=== PATIENT | female | born 1955 | race Two or more races ===

== ENCOUNTER → 2022-03-10 14:19 | Outpatient (REF) | payer MEDICAID, OTHER, SELFPAY ==
--- NOTE | 2022-03-10 | ECG_ITS ---
Test Reason : HTN Blood Pressure : / mmHG Vent. Rate : 065 BPM Atrial Rate : 065 BPM P-R Int : 148 ms QRS Dur : 086 ms QT Int : 400 ms P-R-T Axes : 027 -01 018 degrees QTc Int : 416 ms Normal sinus rhythm Cannot rule out Inferior infarct , age undetermined Abnormal ECG No previous ECGs available Referred By: Ashley Alcaraz Electronically Signed By:Clinton Paez
== END ==
LOC: HO.CARD 14:19
PROVIDERS: PCP Nurse Practitioner Primary Care; Visit Provider Nurse Practitioner Primary Care
DX: I10 Essential (primary) hypertension (principal)
CPT/HCPCS: 93005

== ENCOUNTER 2022-05-10 11:12 | Outpatient (REF) | payer MEDICAID, OTHER, SELFPAY ==
--- NOTE | ~2022-05-10 | US_ITS ---
EXAMINATION: US RETROPERITONEAL LIMITED (AORTA) CLINICAL INFORMATION: Family history of abdominal aortic aneurysm. Personal history of smoking. Abdominal aortic screening. COMPARISON: None TECHNIQUE: Osborne-scale, color Doppler and spectral Doppler evaluation of the abdominal aorta. FINDINGS: There are moderate atherosclerotic calcified roberts abdominal aorta. The measurements of the aorta in maximum AP and transverse dimensions respectively are as follows: Proximal: 2.6 x 3.0 cm. Mid: 2.3 x 2.0 cm. Distal: 2.0 x 2.0 cm. PSV: 87 cm/s. The measurements of the common iliac arteries in maximum AP and TRV dimensions are as follows: Right: AP: 1.4 cm. TRV: 1.4 cm. Left: AP: 1.3 cm. TRV: 1.7 cm. US/US aorta IMPRESSION: Atherosclerotic changes of abdominal aorta without aneurysmal dilatation.
== END 2022-05-10 11:13 | disposition home or self-care (01) ==
LOC: HO.HMGCX 11:12
PROVIDERS: Visit Provider Nurse Practitioner Primary Care
DX: Z13.6 Encounter for screening for cardiovascular disorders (principal); Z87.891 Personal history of nicotine dependence; Z84.89 Family history of other specified conditions
CPT/HCPCS: 76775

== ENCOUNTER 2023-06-08 07:56 | Outpatient (REF) | payer MEDICAID, OTHER, SELFPAY ==
--- NOTE | ~2023-06-08 | MM_ITS ---
EXAMINATION: MM SCREENING DIGITAL BREAST TOMOSYNTHESIS, BILATERAL CLINICAL INFORMATION: Screening. Asymptomatic. The lifetime risk of breast cancer based on the Tyrer-Cuzick Model is 4.4%. COMPARISON: Mammography: This is a baseline mammogram. TECHNIQUE: Digital breast tomosynthesis is performed in both the craniocaudal and mediolateral oblique views along with computer-aided detection (CAD). Synthesized 2D images are generated from the tomosynthesis. FINDINGS: There are scattered areas of fibroglandular density (ACR BI-RADS breast composition Category b). There are no significant masses, abnormal calcifications, or other abnormalities. MM/MM tomosynthesis screening BI IMPRESSION: No mammographic evidence of malignancy. ASSESSMENT: BI-RADS BI-RADS 1 - Negative RECOMMENDATION: Routine annual mammography screening. 1 year F/U This examination should not preclude the clinical evaluation of a suspicious palpable abnormality. This patient's information was entered into a reminder system with a target due date for their next mammogram.
--- NOTE | ~2023-06-08 | MM_ITS ---
EXAMINATION: BONE DENSITOMETRY CLINICAL INDICATION: Menopause. COMPARISON: This is the patient's baseline examination. TECHNIQUE: Using a [employer] DXA System (software version: 13.1) manufactured by [employer], dual-energy x-ray absorptiometry was performed of the lumbar spine and left hip. The images are of good technical quality. Summary results are attached. FINDINGS: LEFT FEMUR, NECK: BMD 0.956 g/cm2, Z-score 0.4, T-score -0.6, normal. LEFT FEMUR, TOTAL: BMD 1.126 g/cm2, Z-score 1.7, T-score 0.9, normal. AP SPINE L1-L4: BMD 1.416 g/cm2, Z-score 2.9, T-score 2.0, normal. IDENTIFIED RISK FACTORS: Menopause. HISTORY OF FRACTURE: None listed. MEDICATIONS: Vitamin D. MM/XR DEXA axial skeleton IMPRESSION: 1. DIAGNOSIS: Normal bone density based on the lowest T-score value of -0.6 in the femoral neck applying World Health Organization criteria. 2. 10-YEAR FRACTURE RISK PREDICTION, FRAX: According to the guidelines, FRAX calculation should only be performed on patients in the osteopenia bone density category. Therefore, FRAX was not performed on this patient. 3. Treatment Recommendations: NOF guidelines recommend consideration for treatment in postmenopausal women and men age 50 and older presenting with the following: -A hip or vertebral (clinical or morphometric) fracture. -T-score less than or equal to -2.5 at the femoral neck or spine after appropriate evaluation to exclude secondary causes. -Low bone mass at the hip or spine and a 10-year fracture probability by FRAX of greater than or equal to 3% for hip fracture or greater than or equal to 20% for major osteoporotic fracture based on the [place] adapted WHO algorithm. 4. Other Recommendations: All treatment decisions require clinical judgment and consideration of individual patient factors, including patient preferences, comorbidities, previous drug use, risk factors not captured in the FRAX model (e.g. frailty, falls, vitamin D deficiency, increased bone turnover, interval significant decline in bone density) and possible under or overestimation of fracture risk by FRAX. FUTURE SCAN RECOMMENDATION: People with diagnosed cases of osteoporosis or at high risk for fracture should have regular bone mineral density tests. For patients eligible for Medicare, routine testing is allowed once every 2 years. The testing frequency can be increased to one year for patients who have rapidly progressing disease, those who are receiving or discontinuing medical therapy to restore bone mass, or have additional risk factors.
== END 2023-06-08 07:57 | disposition home or self-care (01) ==
LOC: HO.MAMMO 07:56
PROVIDERS: PCP Nurse Practitioner Primary Care; Visit Provider Nurse Practitioner Primary Care
DX: Z12.31 Encounter for screening mammogram for malignant neoplasm of breast (principal); Z13.820 Encounter for screening for osteoporosis; Z78.0 Asymptomatic menopausal state
CPT/HCPCS: 77063; 77067; 77080

== ENCOUNTER → 2023-06-08 08:00 | Outpatient (BNV) | payer MEDICAID, SELFPAY | PROVIDERS: PCP Nurse Practitioner Primary Care; Visit Provider Radiology Diagnostic Radiology | DX: Z12.31 Encounter for screening mammogram for malignant neoplasm of breast (principal) | CPT/HCPCS: 77063; 77067 ==

== ENCOUNTER 2024-01-26 10:13 | Outpatient (REF) | payer OTHER, SELFPAY ==
[2024-01-26 11:42] LABS: Hematocrit 41.7 % (37.0-47.0); Hemoglobin 13.2 g/dl (12.0-16.0)
[2024-01-26 11:48] LABS: Estimated Average Glucose 120 mg/dL; Hemoglobin A1c % 5.8 % (<6.0)
[2024-01-26 11:58] LABS: Anion Gap 11 (12-20); Blood Urea Nitrogen 12 mg/dL (9-16); Calcium 9.2 mg/dL (8.4-10.2); Carbon Dioxide 29 mmol/L (22-29); Chloride 107 mmol/L (96-108); Cholesterol 128 mg/dL (<200); Estimated Glomerular Filt Rate > 60; Glucose Random 92 mg/dL (60-115); HDL Cholesterol 36 mg/dL (>40); LDL Cholesterol Calculated 66 mg/dL (<100); Potassium 3.8 mmol/L (3.3-5.1); Sodium 143 mmol/L (135-145); Triglycerides 134 mg/dL (<150)
[2024-01-26 12:00] LABS: Creatinine Urine 139.74 mg/dL; Microalbum/Creatinine Ratio Ur 10.7 ug/mg cr (<30)
== END 2024-01-26 10:14 | disposition home or self-care (01) ==
LOC: HO.LAB 10:13
PROVIDERS: PCP Nurse Practitioner Primary Care; Visit Provider Nurse Practitioner Primary Care
DX: Z00.00 Encounter for general adult medical examination without abnormal findings (principal); E78.5 Hyperlipidemia, unspecified; I70.0 Atherosclerosis of aorta; I10 Essential (primary) hypertension
CPT/HCPCS: 36415; 80048; 80061; 82043; 82570; 83036; 85014; 85018

== ENCOUNTER 2024-02-08 16:03 | Outpatient (REF) | payer OTHER, SELFPAY ==
--- NOTE | ~2024-02-08 | US_ITS ---
EXAMINATION: US THYROID CLINICAL INFORMATION: Anterior left neck swelling on exam. COMPARISON: None available. TECHNIQUE: Linear transducer grayscale and color Doppler examination with attention to the region of the thyroid. FINDINGS: SIZE: Measurements of the thyroid lobes and nodules are given in sagittal, anteroposterior and transverse dimensions respectively. Right Thyroid Lobe: 3.9 x 1.7 x 1.3 cm, volume 4.3 mL. Parenchyma: The gland echotexture is homogeneous. Thyroid vascularity is normal. Left Thyroid Lobe: 3.5 x 1.1 x 1.4 cm, volume 2.8 mL. Parenchyma: The gland echotexture is homogeneous. Thyroid vascularity is normal. Isthmus: 0.2 cm in maximum AP dimension. No focal thyroid nodule is seen. NODES: No lymphadenopathy is seen in the tissue surrounding the thyroid gland. US/US thyroid IMPRESSION: Unremarkable thyroid ultrasound. ACR TI-RADS RECOMMENDATION REFERENCE: Ultrasound-guided fine-needle aspiration, followup ultrasound, no further follow up. * TR1 (0 point) and TR2 (2 points): No FNA or follow up. * TR3 (3 points): FNA if more than or equal to 2.5 cm in maximum dimension, followup ultrasound in 1, 3 and 5 years if 1.5 to 2.4 cm in maximum dimension. * TR4 (4-6 points): FNA if more than or equal to 1.5 cm in maximum dimension, followup ultrasound in 1, 2, 3 and 5 years if 1 to 1.4 cm in maximum dimension. * TR5 (more than or equal to 7 points): FNA if more than or equal to 1 cm in maximum dimension, followup ultrasound every year for 5 years if 0.5 to 0.9 cm in maximum dimension. * TR3, TR4 or TR5 nodules that are below the size threshold for followup receive no follow up.
== END 2024-02-08 16:04 | disposition home or self-care (01) ==
LOC: HO.US 16:03
PROVIDERS: PCP Nurse Practitioner Primary Care; Visit Provider Nurse Practitioner Primary Care
DX: R22.1 Localized swelling, mass and lump, neck (principal)
CPT/HCPCS: 76536

== ENCOUNTER 2024-05-20 19:11 | Outpatient (REF) | payer OTHER, SELFPAY ==
[2024-05-23 15:28] LABS: HPV mRNA E6/E7 Not Detected (Not Detected)
== END 2024-05-20 19:12 | disposition home or self-care (01) ==
LOC: HO.LNP 19:11
PROVIDERS: Visit Provider Advanced Practice Midwife
DX: Z12.4 Encounter for screening for malignant neoplasm of cervix (principal); R87.810 Cervical high risk human papillomavirus (HPV) DNA test positive
CPT/HCPCS: 87624; 88175

== ENCOUNTER 2025-01-23 15:47 | Outpatient (AMB) | payer SELFPAY ==
--- NOTE | 2025-01-23 15:49 | HO.NEPHOV_ITS ---
Vital Signs 01/23/25 15:54 Height 5 ft 2 in Weight 199 lb 2 oz BMI 36.4 BP 144/82 H Blood Pressure Location Lt brachial Position Sitting Pulse 68 Pulse Source Pulse Oximeter Pulse Oximetry (%) 97 Oxygen Delivery Method Room Air Intake Visit Reasons: Self Referral: Hypertension-LVM Automobile Repair Service Estimator Required: Yes Automobile Repair Service Estimator Language: Mauritian Automobile Repair Service Estimator Services: Automobile Repair Service Estimator Offered & Declined ([facility] spanish interpreter services refused- Pt accompanied by daughter) Accompanied by: Daughter Allergies No Known Allergies Allergy (Verified 01/23/25 15:53) HPI Comments Details: Blossom is a delightful 69 year old Japanese who was diagnosed to have hypertension at 52 years of age, while she still was in [facility]. She was started on BP medication at that time . She continued that up to 2019 ( [place] at that time). Her BP was high at that time with headaches and was started on bisoprolol and ARB. She said that she was told she had CAD(in [facility]) and apparently she had further testing here with no definite evidence to say she had CAD. She has no vascular symptoms, CP, SOB,PND, orthopnea or edema. She has no H/O CHF, CVA, PAD, carotid stenosis, renal disease, thyroid dysfunction or proteinuria. She smokes daily and uses excessive sodium in the diet. Her parents and one daughter has H/O high BP. She has gained some weight since 2019; She takes ibuprofen prn. She also takes PRN BP medication from [facility] when her BP goes up. She denies headaches, weakness or visual disturbance. [facility] Medical History (Updated 01/23/25 @ 20:49 by Carlo Pepper MD) Hypertension Surgical History (Updated 01/23/25 @ 15:51 by Maribell Gage MA) H/O foot surgery H/O elbow surgery Family History (Updated 01/23/25 @ 15:51 by Maribell Gage MA) Father Heart disease Hypertension Father Heart disease Hypertension Social History (Updated 01/23/25 @ 15:50 by Maribell Gage MA) Alcohol intake: never Patient Tobacco Use Status: Current everyday Tobacco user Review of Systems Const All systems reviewed & are unremarkable except as noted in HPI and below Physical Exam Vital Signs: Last Vital Signs Pulse 68 01/23/25 15:54 BP 144/82 H 01/23/25 15:54 Pulse Ox 97 01/23/25 15:54 Oxygen Delivery Method Room Air 01/23/25 15:54 BMI result Body Mass Index 36.4 Const General: comfortable and no acute distress Orientation/consciousness: patient oriented x3 HEENT Head: Yes normocephalic Mouth: Normal oral and palatal mucosa present Eyes EOM: EOMs intact bilaterally Neck Neck: Yes supple Resp Auscultation: clear to auscultation bilaterally Cardio Jugular venous distension: no JVD Rate: regular rate GI Palpation (GI): Soft to palpation Auscultation: normal bowel sounds General: Yes no CVA tenderness Back/Spine/Pelvis Back: no CVA tenderness Skin General skin exam: no rashes or lesions noted Neuro General: patient oriented x3 and moves all extremities Extrem General: Yes no pedal edema Results Reviewed Nephrology Results: Hgb 13.2 g/dl (12.0-16.0) 01/26/24 Sodium 143 mmol/L (135-145) 01/26/24 Potassium 3.8 mmol/L (3.3-5.1) 01/26/24 Chloride 107 mmol/L (96-108) 01/26/24 Carbon Dioxide 29 mmol/L (22-29) 01/26/24 BUN 12 mg/dL (9-16) 01/26/24 Creatinine 0.70 mg/dL (0.5-1.4) 01/26/24 Calcium 9.2 mg/dL (8.4-10.2) 01/26/24 Urine Creatinine 139.74 mg/dL 01/26/24 Assessment & Plan Assessment & Plan (1) Hypertension: Code(s): I10 - Essential (primary) hypertension Category: Medical Qualifiers: Hypertension type: primary hypertension Qualified Code(s): I10 - Essential (primary) hypertension Plan She has no H/O hypokalemia, hypercalcemia, uncontrolled thyroid disorders or renal dysfunction. Her serum creatinine is normal. I increased her Valsartan/HCTZ to 80/12.5 mg bid after reducing bisoprolol to 5 mg daily. I plan to wean her off bisoprolol and optimize the dose of ARB/HCTZ. I asked her to lose weight and cut back Na in diet. She was asked to repeat serum K and renal function , given I increased her ARB & thiazides. She should quit smoking as well. All her & her daughters questions were answered. F/U given . Medications: New valsartan-hydrochlorothiazide 80-12.5 mg 1 tab PO BID 60 tabs 3RF 30 days Coding Level of Care Code New Pt Level 4 (75406) Diagnoses Primary hypertension I10 Hypertension type: primary hypertension
[2025-01-23 15:54] VITALS: BP 144/82; PULSE 68; O2SAT 97; BMI 36.4
--- OUTSIDE RECORDS SUMMARY | 2025-01-23 17:47 | XMS_ITS | Encounter Summary ---
Author Organization [employer] Address [address] [facility] [address] [place] [address] Care Team Providers Care Bottling Supervisor Name Role Phone Ashley Alcaraz Primary Care Provider [phone] Encounter Details Date Type Department Care Team ([facility] Contact Info) Description 08/23/2023 Orders Only [facility] MED & PEDS [address] [place] [address] Sloane Olson LPN Social History Tobacco Use Types Packs/Day Years Used Date Smoking Tobacco: Every Day Cigarettes 0.3 20 Passive Smoke Exposure: Never Smokeless Tobacco: Never Alcohol Use Standard Drinks/Week Comments Never 0 (1 standard drink = 0.6 oz pur e alcohol) Comments No Sex and Gender Information Value Date Recorded Sex Assigned at Female 09/25/2022 10:40 AM EDT Legal Sex Female 10:40 AM EDT Gender Identity Female 09/25/2022 10:40 AM EDT Sexual Orientation Straight 09/25/2022 10 :40 AM EDT documented as of this encounter Plan of Treatment Upcoming Encounters Date Type Department Care Team (Late Contact Info) Description 03/13/2025 2:30 PM EDT Office Visit [facility] MEDICINE [address] [place] [address] Ashley Alcaraz ANP [address] [place] [address] documented as of this encounter Visit Diagnoses Not on filedocumented in this encounter Care Teams Bottling Supervisor Relationship Specialty Start Date End Date Ashley Alcaraz ANP [address] [place] [address] PCP - General Family Medicine 02/28/22 documented as of this encounter
--- OUTSIDE RECORDS SUMMARY | 2025-01-23 17:47 | XMS_ITS | Encounter Summary ---
Author Organization [employer] [facility] Address [address] [place] [address] [address] [place] [address] Care Team Providers Care Chainstitch Zipper Setter Name Role Phone Ashley Alcaraz Primary Care Provider [phone] Encounter Details Date Type Department Care Team (Late st Contact Info) Description 12/25/2022 Orders Only [facility] MEDICINE [address] [place] [id number] Yoselin Gallardo LPN Social History Tobacco Use Types Packs/Day Years Used Date Smoking Tobacco: Never Assessed Comments Unknown Sex and Gender Information Value Date Recorded Sex Assigned at Female 09/25/2022 10:40 AM EDT Legal Sex Female 10:40 AM EDT Gender Identity Female 09/25/2022 10:40 AM EDT Sexual Orientation Straight 09/25/2022 10 :40 AM EDT documented as of this encounter Plan of Treatment Upcoming Encounters Date Type Department Care Team (Late st Contact Info) Description 03/13/2025 2:30 PM EDT Office Visit [facility] MEDICINE [address] [place] [phone] Ashley Alcaraz ANP [address] [place] [address] documented as of this encounter Visit Diagnoses Not on filedocumented in this encounter Care Teams Chainstitch Zipper Setter Relationship Specialty Start Date End Date Ashley Alcaraz ANP [address] [place] [id number] PCP - General Family Medicine 02/28/22 documented as of this encounter
--- OUTSIDE RECORDS SUMMARY | 2025-01-23 17:47 | XMS_ITS | Clinical Summary ---
Author Organization [facility] Address [address] [place] [address] Care Team Providers Care Stone Unloader Name Role Phone Ashley Alcaraz Primary Care Provider [phone] Allergies No known active allergies Medications valsartan-hydroc hlorothiazide (DIOVAN-HCT) 80-12.5 mg per tablet Take 1 tablet by mouth once a day. 02/28/2022 Active ibuprofen (MOTRIN) 800 mg tablet Take 800 mg by mouth every 8 hours. 02/04/2022 Active bisoprolol (ZEBETA) 10 mg tablet Take 10 mg by mouth once a day. 02/28/2022 Active cholecalciferol (VITAMIN D3) 1,000 unit tablet Take 1,000 Units by mouth once a day. 04/13/2022 Active Active Problems Problem Noted Date Diagnosed Date Other chest pain 06/26/2022 Social History Tobacco Use Types Packs/Day Years Used Date Smoking Tobacco: Light Smoker Smokeless Tobacco: Never Comments Unknown Sex and Gender Information Value Date Recorded Sex Assigned at Not on file Legal Sex Female 9:11 AM EDT Gender Identity Not on file Sexual Orientation Not on file Last Filed Vital Signs Vital Sign Reading Time Taken Comments Blood Pressure 130/75 06/26/2022 2:35 PM EDT Pulse 59 06/26/2022 2:35 PM EDT Temperature - - Respiratory Rate 16 06/26/2022 2:35 PM EDT Oxygen Saturation 96% 06/26/2022 2:35 PM EDT Inhaled Oxygen Concentration - - Weight 86.9 kg (191 lb 9.6 oz) 06/26/2022 2:35 P M EDT Height 160 cm (5' 3 ) 06/26/2022 2:35 PM EDT Body Mass Index 33.94 06/26/2022 2:35 PM EDT Plan of Treatment Health Maintenance Due Date Last Done Comments Cologuard 1957 Colon Cancer Screening 1957 Colonoscopy 1957 FOBT / Fit Test 1957 Hepatitis C Screening 1957 Sigmoidoscopy 1957 Pneumococcal Vaccine: 50+ Years (1 of 2 - PCV) 1976 DTaP,Tdap,and Td Vaccines (1 - Tdap) [address] Lung Cancer Screening (Baseline) 2007 Osteoporosis Screening 2007 Zoster Vaccines (1 of 2) 2007 COVID-19 Vaccine ( - 2023-2 5 season) 2024 03/27/2021, 03/05/2021 Influenza Vaccine (#1) 2024 Alcohol/Substance Use Screening 11/26/2024 Depression Screening and Follow-Up 11/26/2024 Health Care Proxy Review 11/26/2024 Social Drivers of Health Annual Screening 11/26/2024 RSV Vaccine (60+ years old a nd patients) (1 - 1-dose 75+ series) 2032 Hepatitis B Vaccines Aged Out No long er eligible based on patient's age to complete this topic [facility] Care Teams Stone Unloader Relationship Specialty Start Date End Date Ashley Alcaraz [address] [place] [id number] PCP - General 03/09/22
--- OUTSIDE RECORDS SUMMARY | 2025-01-23 17:47 | XMS_ITS | Encounter Summary ---
Author Organization [employer] [facility] Address [address] [place] [address] [address] [place] [address] Care Team Providers Care Flour Inspector Name Role Phone Ashley Alcaraz Primary Care Provider [phone] Reason for Visit * Reason Onset Date Comments Med Refill 10/26/2022 Encounter Details Date Type Department Care Team (Late st Contact Info) Description 10/26/2022 Telephone [facility] [address] [place], [place] [phone] Ashley Alcaraz ANP [address] [place], [place] [phone] Med Refill Social History Tobacco Use Types Packs/Day Years Used Date Smoking Tobacco: Never Assessed Comments Unknown Sex and Gender Information Value Date Recorded Sex Assigned at Female 09/25/2022 10:40 AM EDT Legal Sex Female 10:40 AM EDT Gender Identity Female 09/25/2022 10:40 AM EDT Sexual Orientation Straight 09/25/2022 10 :40 AM EDT documented as of this encounter Miscellaneous Notes * Telephone Encounter - No [place]graw - 10/26/2022 1:28 PM EST Tc from Marianela daughter of pt calling requesting a med refill on documented in this encounter Plan of Treatment Upcoming Encounters Date Type Department Care Team (Late st Contact Info) Description 03/13/2025 2:30 PM EDT Office Visit [facility] [address] [place], [place] [phone] Ashley Alcaraz ANP [address] [place] [address] documented as of this encounter Visit Diagnoses Not on filedocumented in this encounter Care Teams Flour Inspector Relationship Specialty Start Date End Date Ashley Alcaraz ANP [address] [place] [address] PCP - General Family Medicine 02/28/22 documented as of this encounter
--- OUTSIDE RECORDS SUMMARY | 2025-01-23 17:47 | XMS_ITS | Referral Summary ---
Author Organization [facility] Address [address] [place] [address] Care Team Providers Care Child Care Cook Name Role Phone Ashley Alcaraz Primary Care Provider [phone] Allergies No known active allergies Medications valsartan-hydroc [...] 06/26/2022 2:35 PM EDT Plan of Treatment Not on file Insurance [employer] HSNO/FREE CARE Care Teams Child Care Cook Relationship Specialty Start Date End Date Ashley Alcaraz [address] [place] [id number] PCP - General 03/09/22
--- OUTSIDE RECORDS SUMMARY | 2025-01-23 17:47 | XMS_ITS | Encounter Summary ---
Author Organization [facility] [employer] [facility] Address [address] [place] [address] [address] [place] [address] Care Team Providers Care Sales Superintendent Name Role Phone Ashley Alcaraz Primary Care Provider [phone] Encounter Details Date Type Department Care Team (Late st Contact Info) Description 01/02/2023 Orders Only [facility] CH[facility] MED & PEDS [address] [place] [address] Sloane Olson LPN Social History Tobacco Use [...] Description 03/13/2025 2:30 PM EDT Office Visit [facility] MEDICINE [address] [place] [address] Ashley Alcaraz ANP [address] [place] [address] documented as of this encounter Visit Diagnoses Not on filedocumented in this encounter Care Teams Sales Superintendent Relationship Specialty Start Date End Date Ashley Alcaraz ANP [address] [place] [address] PCP - General Family Medicine 02/28/22 documented as of this encounter
--- OUTSIDE RECORDS SUMMARY | 2025-01-23 17:47 | XMS_ITS | Clinical Summary ---
Author Organization [employer] Address [address] [facility] [address] [place] [address] Care Team Providers Care Floor Molder Name Role Phone Best Eric ROBERT Primary Care Provider [phone] Allergies No known active allergies Medications * This document contains information received from the source organization and may not represent a complete record from that organization. aspirin 81 MG EC tablet Take 1 tablet by mouth at bed time. Active omega-3 (Fish Oil) 1000 MG capsule Acti ve Plant Sterol Stanol-Pantethine (CholestOff Complete) 300-100 MG capsule Active ciclopirox (Penlac) 8 % solutionIndication s:Onychomycosis APPLY TO THE AFFECTED AREA(S) DIRECTED ONCE DAILY TO affected nails 6.6 mL 2 4 Active cholecalciferol (Vitamin D-3) 25 MCG tabletIndications: Vitamin D deficiency TAKE ONE TABLET EVERY MORNING 90 tablet 1 4 Active atorvastatin (Lipitor) 20 MG tabletIndications: Hyperlipidemia, unspecified hyperlipidemia type TAKE ONE TABLET BY MOUTH ONCE DAILY 90 tablet 2 4 Active bisoprolol (Zebeta) 10 MG tablet TAKE ONE TABLET DAILY 90 tablet 3 4 Active valsartan-hydroCHL OROthiazide (Diovan-HCT) 80-12.5 MG tablet TAKE ONE TABLET DAILY 90 tablet 3 4 Active clotrimazole (Lotrimin) 1 % creamIndications:T inea cruris APPLY TOPICALLY TWICE A DAY 45 g 4 Active Diclofenac Sodium 1 % gelIndications:Chetna n APPLY TWO GRAMS TO THE AFFECTED AREA(s) FOUR TIMES DAILY NEEDED FOR PAIN 100 g 1 4 Active Active Problems Problem Noted Date Diagnosed Date Dyslipidemia 01/29/2024 Low back pain radiating to both legs 01/29/2024 Essential hypertension 01/29/2024 Continuous dependence on cigarette smoking 01/28 Overview (01/29/2024): smoking much less, maybe 1 daily or 1 every few days Atherosclerosis of aorta 05/10/2022 Encounters Date Type Department Care Team Description 12/05/2024 Telephone [facility] [address] [place] [address] Anna Arboleda [place] January recall 11/14/2024 2:30 PM EST Office Visit [facility] [address] [place] [address] Isacc Rios DDS 11/11/2024 2:00 PM EST Office Visit [facility] [address] [place] [address] Isacc Rios DDS from Last 3 Months Immunizations Name Administration Dates Next Due Tdap 12/31/2023 Social History Tobacco Use Types Packs/Day Years Used Date Smoking Tobacco: Former Cigarettes 0.3 20 Passive Smoke Exposure: Never Smokeless Tobacco: Never Tobacco Cessation:Counseling Given: Not Answered Alcohol Use Standard Drinks/Week Comments Never 0 (1 standard drink = 0.6 oz pur e alcohol) Alcohol Answer Date Recorded Frequency of Alcohol Consumption Not on file 01/29/2024 Average Number of Drinks Not on file 024 Frequency of Binge Drinking Not on file 03/2024 Score 0 01/29/2024 Depression Answer Date Recorded Patient Health Questionnaire-9 Score 0 12/31/2023 Patient Health Questionnaire-9 Score 0 12/31/2023 Last PHQ-9: Questionnaire Data Not on file 0 12/31/2023 Housing Stability Answer Date Recorded What is your housing situation today? I have andrew alvarado 09/24/[address] you li ve. Do you have problems with any of the following? None of the above 09/24/2023 Food Insecurity Answer Date Recorded Within the past 12 months, y ou worried that your food would run out before you got money to buy more: Never True 09/24/2023 Within the past 12 months,th e food you bought just didn't last and you didn't have enough money to get more: Never True Transportation Answer Date Recorded In the past 12 months, has l ack of transportation kept you from medical appts, meetings, work or from getting things needed for daily living? No 09/24/2023 Utilities Answer Date Recorded In the past 12 months, has t he electric, gas, oil or water company threatened to shut off services in your home? No 09/24/2023 Depression Answer Date Recorded Patient Health Questionnaire-2 Score 0 12/31/2023 Comments No Sex and Gender Information Value Date Recorded Sex Assigned at Female 09/25/2022 10:40 AM EDT Legal Sex Female 10:40 AM EDT Gender Identity Female 09/25/2022 10:40 AM EDT Sexual Orientation Straight 09/25/2022 10 :40 AM EDT Last Filed Vital Signs Vital Sign Reading Time Taken Comments Blood Pressure 137/85 05/20/2024 3:34 PM EDT Pulse 79 05/20/2024 3:34 PM EDT Temperature 36.9 ??C (98.5 ??F) 05/20/2024 3:34 PM ED T Respiratory Rate 18 05/20/2024 3:34 PM EDT Oxygen Saturation 98% 05/20/2024 3:34 PM EDT Inhaled Oxygen Concentration - - Weight 88.4 kg (194 lb 12.8 oz) 05/20/2024 3:34 PM EDT Height 157.5 cm (5' 2 ) 05/20/2024 3:34 PM EDT Body Mass Index 35.63 05/20/2024 3:34 PM EDT Plan of Treatment Upcoming Encounters Date Type Department Care Team (Late st Contact Info) Description 03/13/2025 2:30 PM EDT Office Visit [facility] [address] [place], [place] [phone] Eric Best ANP [address] [place] [address] Health Maintenance Due Date Last Done Comments CT Colonography 1955 Colonoscopy 1955 Dental X-Ray: Bitewings 1955 Dental X-Ray: Full Mouth 1957 FIT 1957 FOBT 1955 Sigmoidoscopy 1955 Hepatitis A Vaccines (1 of 2 - Risk 2-dose series) 1976 Pneumococcal Vaccine: 50+ Years (1 of 1 - PCV) 2007 Zoster Vaccines (1 of 2) 2007 Dental Oral Exam 10/15/2023 04/13/2023 Dental Prophylaxis 10/15/2023 04/13/2023 SDOH Screening 05/03/2024 05/03/2023 Mammogram 06/08/2024 06/08/2023, 06/08/2023 COVID-19 Vaccine (3 - 2023-2 5 season) 2024 03/27/2021, 03/05/2021 Influenza Vaccine (#1) 2024 Depression Screening 12/31/2024 12/31/2023, 12/31/2023 Diabetes: Hemoglobin A1C 01/25/2025 024, 02/28/2022 Alcohol/Substance Use Screening 01/28/2025 01/29/2024 HPV/Cotest 05/20/2025 05/20/2024, 04/24/2023, 04/24/2023 Pap Smear 05/20/2025 05/20/2024, 04/24/2023 Tobacco Screening 11/14/2025 11/14/2024 Colorectal Cancer Screening 06/19/2027 FIT DNA/Cologuard 06/19/2027 06/19/2024 Lipid Panel 01/25/2029 01/26/2024, 02/28/2022 RSV Patients and Patients Aged 60 years or older (1 - 1-dose 75+ series) 2032 DTaP/Tdap/Td Vaccines (2 - T d or Tdap) 12/31/2033 12/31/2023 Hepatitis C Screening Completed 02/28/2022 HIB Vaccines Aged Out No longer eligi ble based on patient's age to complete this topic HPV Vaccines Aged Out No longer eligi ble based on patient's age to complete this topic Hepatitis B Vaccines Aged Out No long er eligible based on patient's age to complete this topic IPV Vaccines Aged Out No longer eligi ble based on patient's age to complete this topic Meningococcal Vaccine Aged Out No sonya narendra eligible based on patient's age to complete this topic RSV under 20 months Aged Out No longe r eligible based on patient's age to complete this topic Rotavirus Vaccines Aged Out No longer eligible based on patient's age to complete this topic Procedures Procedure Name Priority Date/Time Associated Diagnosis Comments REPAIR RESIN PARTIAL DENTURE BASE, JONAS Routine 11/14/2024 2:30 PM EST CASE PRESENTATION, DETAILED AND EXTENSIVE TREATMENT PLANNING Routine 11/11/2024 2:00 PM EST LIMITED ORAL EVALUATION - PROBLEM FOCUSED Routine 11/11/2024 2:00 PM EST LAB COLOGUARD?? COLON CANCER SCREEN Routine 06/19/2024 5:20 PM EDT Screening for malignant neoplasm of colon THINPREP IMAGING PAP AND HPV MRNA E6/E7 WITH REFLEX TO HPV 16,18/45 Routine 05/20/2024 3:28 PM EDT HEMOGLOBIN A1C Routine 01/26/2024 10:38 AM EST Healthcare maintenance Dyslipidemia LIPID PANEL, STANDARD Routine 01/26/2024 10:38 AM EST Dyslipidemia BI MAMMOGRAM SCREENING TOMOSYNTHESIS BILATERAL Routine 06/08/2023 8:11 AM EDT PERIODIC ORAL EVALUATION - ESTABLISHED PATIENT Routine 04/13/2023 9:30 AM EDT PROPHYLAXIS - ADULT Routine 04/13/2023 8 :00 AM EDT ZZZ HISTORICAL HEPATITIS C AB W/REFL TO HCV RNA, QN, PCR Routine 02/28/2022 10:58 AM EDT from Last 3 Months or Most Recently Relevant to Health Maintenance Results * Cologuard?? colon cancer screening (06/19/2024 5:20 PM EDT) Cologuard Result Negative Negative 06/25/20 1:38 PM EDT [employer] (CLIA #:[id number]) Comment: NEGATIVE TEST RESULT. A negative Cologuard result indicates a low likelihood that a colorectal cancer (CRC) or advanced adenoma (adenomatous polyps with more advanced pre-malignant features) ??is present. The chance that a person with a negative Cologuard test has a colorectal cancer is less than 1 in 1500 (negative predictive value >99.9%) or has an ??advanced adenoma is less than ??5.3% (negative predictive value 94.7%). These data are based on a prospective cross-sectional study of 10,000 individuals at average risk for colorectal cancer who were screened with both Cologuard and colonoscopy. (Zackary Peralta al, N Engl J Med 2014;370(14):1286- 1297) The normal value (reference range) for this assay is negative. COLOGUARD RE-SCREENING RECOMMENDATION: Periodic colorectal cancer screening is an important part of preventive healthcare for asymptomatic individuals at average risk for colorectal cancer. ??Following a negative Cologuard result, the [place] [employer] Society and U.S. Multi-Society Task Force screening guidelines recommend a Cologuard re-screening interval of 3 years. References: [place] [employer] Guideline for Colorectal Cancer Screening: https://www.cancer.org/cancer/rrpmu-ycpvut-yhvbka/lhsswfqrl-qrmthsxsb-iyradxo/ac s-rec ommendations.html.; Rodrick DK, Ondina CR, Yasmine SantillanK, Colorectal Cancer Screening: Recommendations for Physicians and Patients from the U.S. Multi-Society Task Force on Colorectal Cancer Screening , Am J Gastroenterology 2017; 112:5807-6649. TEST DESCRIPTION: Composite algorithmic analysis of stool DNA-biomarkers with hemoglobin immunoassay. ?? Quantitative values of individual biomarkers are not reportable and are not associated with individual biomarker result reference ranges. Cologuard is intended for colorectal cancer screening of adults of either sex, 45 years or older, who are at average-risk for colorectal cancer (CRC). Cologuard has been approved for use by the U.S. FDA. The performance of Cologuard was established in a cross sectional study of average-risk adults aged 50-84. Cologuard performance in patients ages 45 to 49 years was estimated by sub-group analysis of near-age groups. Colonoscopies performed for a positive result may find as the most clinically significant lesion: colorectal cancer [4.0%], advanced adenoma (including sessile serrated polyps greater than or equal to 1cm diameter) [20%] or non- advanced adenoma [31%]; or no colorectal neoplasia [45%]. These estimates are derived from a prospective cross-sectional screening study of 10,000 individuals at average risk for colorectal cancer who were screened with both Cologuard and colonoscopy. (Zackary Peralta al, N Engl J Med 2014;370(14):1196-9959.) Cologuard may produce a false negative or false positive result (no colorectal cancer or precancerous polyp present at colonoscopy follow up). A negative Cologuard test result does not guarantee the absence of CRC or advanced adenoma (pre-cancer). The current Cologuard screening interval is every 3 years. ([place] [employer] and U.S. Multi-Society Task Force). Cologuard performance data in a 10,000 patient pivotal study using colonoscopy as the reference method can be accessed at the following location: www.OptionEase.LOCK8/results. Additional description of the Cologuard test process, warnings and precautions can be found at www.Cynvecrd.LOCK8. Stool specimen (specimen) 06/19/2024 5:20 PM EDT 06/21/2024 7:36 AM EDT [facility] MOLECULAR DIAGNOSTICS ORDERA BLES Final Result [employer] (CLIA #:[id number]) [address] [place] [address], * ThinPrep Imaging Pap and HPV mRNA E6/E7 with Reflex to HPV 16,18/45 (05/20/2024 3:28 PM EDT) HPV 16 RNA ORP [facility] HPV 18/45 RNA [facility] HPV nRNA E6/E7 Not Detected Not Detected [facility] Comment:Methodology: Transcr iption-Mediated AmplificationThis assay detects E6/E7 viral messenger RNA (mRNA) from 14high-risk HPV types (16,18,31,33,35,39,45,51,52,56,58,59,66,68).Cervical sources are required for HPV testing.If a vaginal source from a patient who has had atotal hysterectomy with removal of cervix wassubmitted, please contact the testing laboratoryfor alternative testing options.For additional information, please refer tohttp://education.WebRadar/faq/JIC633u9(This link if provided for information/educational purposes only.)THIS TEST WAS PERFORMED AT:[facility] [address] [phone] BRIZUELA MD SOURCE: SEE NOTE [facility] Comment:Cervix Report Status: [facility] Clinical Information: SEE NOTE [facility] Comment:ROUTINE LMP: SEE NOTE [facility] Comment:NONE GIVEN Prev. PAP: SEE NOTE [facility] Comment:2019 Prev. BX: SEE NOTE [facility] Comment:NONE GIVEN Statement Of Adequacy: SEE NOTE [facility] Comment:Satisfactory for jd luation.Endocervical/transformation zone component absent. General Categorization: [facility] Interpretation/Result: SEE NOTE [facility] Comment:Cytology Results: Ne gative for intraepitheliallesion or malignancy. Cytology Comment SEE NOTE [facility] Comment:This Pap test has be en evaluated with computerassisted technology. Odd Shoe Examiner: SEE NOTE [facility] Comment:MRC, CT(ASCP) CT scr eening location: [address] [address] Review Odd Shoe Examiner: [facility] Pathologist [facility] PAP Infection [facility] See Note SEE [facility] Comment:EXPLANATORY NOTE:The Pap is a screening test for cervical cancer. It isnot a diagnostic test and is subject to false negativeand false positive results. It is most reliable when asatisfactory sample, regularly obtained, is submittedwith relevant clinical findings and history, and whenthe Pap result is evaluated along with historic andcurrent clinical information. 05/20/2024 3:28 PM EDT 05/21/2024 11:49 AM EDT Narrative [facility] - 05/27/2024 3:22 PM EDT SEE SCANNED RESULTS IN [id number] Qian JAMES LAB PATHOLOGY ORDERABLES Final Result Performing Organization Address [facility]/ZIP Co de Phone Number [facility] [address] [place] [address] [phone] * Hemoglobin A1c (01/26/2024 10:38 AM EST) Hemoglobin A1c 5.8 <6.0 % [facility] Comment:Hemoglobin A1C Refer ence Range Adults: 4.8 - 6.0 % Non diabetic: < 6.0 % Goal: < 7.0 %Additional Action Suggested: > 8.0 %Note: Hemoglobin A1c results are invalid for patients with abnormal amounts of HbF. Blood transfusions may impact the HbA1c concentration in the patient sample. Estimated Average Glucose 120 mg/dL [facility] Comment:eAG = Estimated ave rage glucose which is %A1C expressed asaverage glucose, using the formula of the J4Y-AylgiheKcigcir Glucose study (ADAG), Diabetes Care, Vol.31,#8,Jun. 2007 Blood Venous blood specimen / Unknown 01/26/2024 10:38 AM EST 01/26/2024 10:39 AM EST us Eric ROBERT LAB BLOOD ORDERABLES Final Resul t Performing Organization Address City/[facility]/ZIP Co de Phone Number [facility] [address] [place] [phone] * (ABNORMAL) Lipid Panel, Standard (01/26/2024 10:38 AM EST) Triglycerides 134 <150 mg/dL [facility] Comment:Desirable Triglyceri de: less than 150 mg/dLBorderline High Triglyceride 150-199 mg/dLHigh Triglyceride: 200-499 mg/dLVery High Triglyceride: greater than or equal to 5OO mg/dL Cholesterol 128 <200 mg/dL [facility] Comment:Desirable Cholestero l: less than 200 mg/dLBorderline High Cholesterol: 200-239 mg/dLHigh Cholesterol: greater than 239 mg/dL LDL Cholesterol Calculated 66 <100 mg/dL [facility] Comment:Desirable LDL: less than 100 mg/dLNear Optimal/Above Optimal LDL: 110- 129 mg/dLBorderline High LDL: 130-159 mg/dLHigh LDL: 160-189 mg/dLVery High LDL: greater than or equal to 190 mg/dL HDL Cholesterol 36(L) >40 mg/dL [facility] Comment:Desirable HDL: great er than 40 mg/dL Note: This HDL assay may give artificially low results in patients with liver disease. Blood Venous blood specimen / Unknown 01/26/2024 10:38 AM EST 01/26/2024 10:39 AM EST us Eric Best [facility] LAB BLOOD ORDERABLES Final Resul t [facility] [address] [place] [address] [phone] * BI Mammogram Screening Tomosynthesis Bilateral (06/08/2023 8:11 AM EDT) Anatomical Region Laterality Modality Breast Bilateral Mammography 06/08/2023 8:11 AM EDT Narrative 07/03/2023 2:17 PM EDT ? [facility] [place] ? [address] ?[place] [address] ? Mammography Report ? Signed ? Patient: Zimatkina,Taisa ?MR#: [id number] ?? [id number] ? : 1955 ?Acct:[id number] ? Age/Sex: 67 / F ?ADM Date: 07/14/23 ? Loc: HO.MAMMO ? Attending Dr: Eric Best SHEET METAL FORMER ? Ordering Physician: NASIR,ERIC SHEET [employer]AL FORMER ?Results: ? Date of Service: 06/08/23 ?Follow Up: ? Procedure(s): MM tomosynthesis screening BI ?? Accession Number(s): [id number] ? cc: NASIR,ERIC YANCEY ? EXAMINATION: ?? MM SCREENING DIGITAL BREAST TOMOSYNTHESIS, BILATERAL ? CLINICAL INFORMATION: ? Screening. Asymptomatic. ? The lifetime risk of breast cancer based on the Tyrer-Cuzick Model is ?? 4.4%. ? COMPARISON: ?? Mammography: This is a baseline mammogram. ? TECHNIQUE: ?? Digital breast tomosynthesis is performed in both the craniocaudal and ?? mediolateral oblique views along with computer-aided detection (CAD). ?? Synthesized 2D images are generated from the tomosynthesis. ? FINDINGS: ?? There are scattered areas of fibroglandular density (ACR BI-RADS breast ?? composition Category b). ? There are no significant masses, abnormal calcifications, or other ?? abnormalities. ? MM/MM tomosynthesis screening BI ?? IMPRESSION: ?? No mammographic evidence of malignancy. ? ASSESSMENT: ? BI-RADS BI-RADS 1 - Negative ? RECOMMENDATION: ?? Routine annual mammography screening. ? 1 year F/U ? This examination should not preclude the clinical evaluation of a ?? suspicious palpable abnormality. ? This patient's information was entered into a reminder system with a ?? target due date for their next mammogram. ? Dictated By: ?Aissatou Ramos MD ? Signed By: ?<Electronically signed by Aissatou Ramos MD in OV> ? 07/03/23 1415 ? DD/ ? TD/TT: ? Nip Wrapper: ? Procedure Note Leah Montero - 07/03/2023 [facility] [address] [place], [place] [address] Mammography Report Signed Patient: Ingrid Whatley#: [id number] : 7Acct:[id number] Age/Sex: 67 / FADM Date: 06/08/23 Loc: HOJuditMAMMO Attending Dr: Eric Best SHEET [employer] FORMER Ordering Physician: ERIC BEST NPResults: Date of Service: 06/08/23Follow Up: Procedure(s): MM tomosynthesis screening BI Accession Number(s): [id number] cc: ERIC BEST NP EXAMINATION: MM SCREENING DIGITAL BREAST TOMOSYNTHESIS, BILATERAL CLINICAL INFORMATION: Screening. Asymptomatic. The lifetime risk of breast cancer based on the Tyrer-Cuzick Model is 4.4%. COMPARISON: Mammography: This is a baseline mammogram. TECHNIQUE: Digital breast tomosynthesis is performed in both the craniocaudal and mediolateral oblique views along with computer-aided detection (CAD). Synthesized 2D images are generated from the tomosynthesis. FINDINGS: There are scattered areas of fibroglandular density (ACR BI-RADS breast composition Category b). There are no significant masses, abnormal calcifications, or other abnormalities. MM/MM tomosynthesis screening BI IMPRESSION: No mammographic evidence of malignancy. ASSESSMENT: BI-RADS BI-RADS 1 - Negative RECOMMENDATION: Routine annual mammography screening. 1 year F/U This examination should not preclude the clinical evaluation of a suspicious palpable abnormality. This patient's information was entered into a reminder system with a target due date for their next mammogram. Dictated By: Aissatou Ramos MD Signed By: <Electronically signed by Aissatou Ramos MD in OV> 07/03/23 1415 DD/ 0811 TD/TT: Nip Wrapper: Eric Best ANP IMG BI PROCEDURES Final Result * HEPATITIS C AB W/REFL TO HCV RNA, QN, PCR (02/28/2022 10:58 AM EDT) HEPATITIS C ANTIBODY NON-REACT JENNY NON-REACT JENNY [facility] INDEX 0.01 <1.00 [facility] Comment: ?? HCV antibody was non-reactive. There is no laboratory ?? evidence of HCV infection. ?? In most cases, no further action is required. However, if recent HCV exposure is suspected, a test for HCV RNA (test code 46200) is suggested. ?? For additional information please refer to http://[employer].WebRadar/faq/TMV35j7 (This link is being provided for informational/ educational purposes only.) ?? 02/28/2022 10:5 8 AM EDT us Eric Best ANP HISTORICAL/NON ORDERABLE LABS Fi nal Result [facility] [address] from Last 3 Months or Most Recently Relevant to Health Maintenance Insurance HSN FULL DENTAL - HSN FULL (MEDICAID) Care Teams Floor Molder Relationship Specialty Start Date End Date Eric Best ANP [address] [place] [phone] PCP - General Family Medicine 02/28/22
== END 2025-01-23 16:19 | disposition home or self-care (01) ==
PROVIDERS: PCP Nurse Practitioner Primary Care; Visit Provider Internal Medicine Nephrology
DX: I10 Essential (primary) hypertension (principal)
CPT/HCPCS: 99204

== ENCOUNTER → 2025-01-23 15:47 | Outpatient (BNVA) | payer OTHER, SELFPAY | PROVIDERS: PCP Nurse Practitioner Primary Care; Visit Provider Internal Medicine Nephrology | DX: I10 Essential (primary) hypertension (principal); Z79.899 Other long term (current) drug therapy | CPT/HCPCS: 99202 ==

== ENCOUNTER 2025-02-20 15:35 | Outpatient (AMB) | payer SELFPAY ==
--- NOTE | 2025-02-20 15:42 | HO.NEPHOV_ITS ---
Vital Signs 02/20/25 15:43 Height 5 ft 2 in Weight 195 lb 6 oz BMI 35.7 BP 126/70 Blood Pressure Location Lt brachial Position Sitting Pulse 70 Pulse Source Pulse Oximeter Pulse Oximetry (%) 96 Oxygen Delivery Method Room Air Intake Visit Reasons: 1 MO FU-[facility] Spa Receptionist Required: No Accompanied by: Daughter Allergies No Known Allergies Allergy (Verified 02/20/25 15:43) HPI Comments Details: Blossom is a delightful 69 year old [place] who was diagnosed to have hypert ension at 52 years of age, while she still was in [facility]. She was started on BP medication at that time . She continued that up to 2019 ( she arrived in [place] at that time[place] Her BP was high at that time with headaches and was started on bisoprolol and ARB. She said that she was told she had CAD(in [facility]) and apparently she had further testing here with no definite evidence to say she had CAD. She has no vascular symptoms, CP, SOB,PND, orthopnea or edema. She has no H/O CHF, CVA, PAD, carotid stenosis, renal disease, thyroid dysfunction or proteinuria. She smokes daily and uses excessive sodium in the diet. Her parents and one daughter has H/O high BP. She has gained some weight since 2019; She takes ibuprofen prn. She had been taking PRN BP medication from [facility] when her BP goes up. She denies headaches, weakness or visual disturbance. [facility] Medical History (Updated 01/23/25 @ 20:49 by Carlo Pepper MD) Hypertension Surgical History H/O foot surgery H/O elbow surgery Family History Father Heart disease Hypertension Father Heart disease Hypertension Social History Alcohol intake: never Patient Tobacco Use Status: Current everyday Tobacco user Review of Systems Const All systems reviewed & are unremarkable except as noted in HPI and below Physical Exam Const General: comfortable and no acute distress Orientation/consciousness: patient oriented x3 HEENT Head: Yes normocephalic Mouth: Normal oral and palatal mucosa present Eyes EOM: EOMs intact bilaterally Neck Neck: Yes supple Resp Auscultation: clear to auscultation bilaterally Cardio Jugular venous distension: no JVD Rate: regular rate GI Palpation (GI): Soft to palpation Auscultation: normal bowel sounds Skin General skin exam: no rashes or lesions noted Neuro General: patient oriented x3 and moves all extremities Extrem General: Yes no pedal edema Results Reviewed Nephrology Results: Hgb 13.2 g/dl (12.0-16.0) 01/26/24 Sodium 143 mmol/L (135-145) 01/26/24 Potassium 3.8 mmol/L (3.3-5.1) 01/26/24 Chloride 107 mmol/L (96-108) 01/26/24 Carbon Dioxide 29 mmol/L (22-29) 01/26/24 BUN 12 mg/dL (9-16) 01/26/24 Creatinine 0.70 mg/dL (0.5-1.4) 01/26/24 Calcium 9.2 mg/dL (8.4-10.2) 01/26/24 Urine Creatinine 139.74 mg/dL 01/26/24 Assessment & Plan Assessment & Plan (1) Hypertension: Code(s): I10 - Essential (primary) hypertension Category: Medical Qualifiers: Hypertension type: primary hypertension Qualified Code(s): I10 - Essential (primary) hypertension Plan She has no H/O hypokalemia, hypercalcemia, uncontrolled thyroid disorders or renal dysfunction. Her serum creatinine is normal. She can continue Valsartan/HCTZ 80/12.5 mg bid along with bisoprolol 5 mg daily . I asked her to lose weight and cut back Na in diet. F/U labs ordered. She should quit smoking as well. All her & her daughters questions were answered. F/U given . Orders: Orders Creatinine 6 Months I10 - Essential (primary) hypertension Blood Urea Nitrogen 6 Months I10 - Essential (primary) hypertension Electrolytes 6 Months I10 - Essential (primary) hypertension Medications: Changed From valsartan-hydrochlorothiazide 80-12.5 mg 1 tab PO BID 30 days 60 tabs 3RF To valsartan-hydrochlorothiazide 80-12.5 mg 1 tab PO BID 90 days 180 tabs 4RF From bisoprolol fumarate 5 mg PO DAILY To bisoprolol fumarate 5 mg PO DAILY 90 days 90 tabs 3RF Coding Level of Care Code Est Pt Level 4 (44486) Diagnoses Primary hypertension I10 Hypertension type: primary hypertension
[2025-02-20 15:43] VITALS: BP 126/70; PULSE 70; O2SAT 96; BMI 35.7
== END 2025-02-20 15:59 | disposition home or self-care (01) ==
LOC: HO.HKA 15:36
PROVIDERS: PCP Nurse Practitioner Primary Care; Visit Provider Internal Medicine Nephrology
DX: I10 Essential (primary) hypertension (principal)
CPT/HCPCS: 99214

== ENCOUNTER → 2025-02-20 15:35 | Outpatient (BNVA) | payer OTHER, SELFPAY | PROVIDERS: PCP Nurse Practitioner Primary Care; Visit Provider Internal Medicine Nephrology | DX: I10 Essential (primary) hypertension (principal) | CPT/HCPCS: 99212 ==

== ENCOUNTER 2025-05-07 11:20 | Outpatient (REF) | payer SELFPAY ==
--- NOTE | ~2025-05-07 | XR_ITS ---
EXAMINATION: XR ANKLE 3 OR MORE VIEWS LEFT HISTORY: 6-day duration of left ankle swelling and pain COMPARISON: There are no prior studies available for comparison. FINDINGS: Three views of the left ankle are submitted. Osseous mineralization is normal. A well-corticated osseous density is noted adjacent to the tip of the medial malleolus which is likely the result of old trauma. No acute fracture is seen. There is no dislocation. There is moderate degenerative change of the tibiotalar joint with narrowing medially and widening laterally. There are calcaneal spurs at the insertion of the Achilles tendon and at the plantar aspect. There is diffuse soft tissue swelling. XR/XR ankle LT min 3V IMPRESSION: Diffuse soft tissue swelling. Degenerative changes as described. No evidence of acute fracture. Electronically signed by: Hernesto Alonso MD 05/07/2025 02:01 PM EDT
--- OUTSIDE RECORDS SUMMARY | 2025-05-07 13:22 | XMS_ITS | Referral Summary ---
Author Organization [facility] Address [address] [place] [address] Care Team Providers Care Forensic Psychologist Name Role Phone Ashley Alcaraz Primary Care Provider [phone] Allergies No known active allergies Medications valsartan-hydroc [...] file Insurance [employer]/FREE CARE Care Teams Forensic Psychologist Relationship Specialty Start Date End Date Ashley Alcaraz [address] [place] [id number] PCP - General 03/09/22
== END 2025-05-07 11:21 | disposition home or self-care (01) ==
LOC: HO.HHCX 11:20
PROVIDERS: Visit Provider Family Medicine
DX: M25.572 Pain in left ankle and joints of left foot (principal)
CPT/HCPCS: 73610

== ENCOUNTER → 2025-05-07 11:20 | Outpatient (BNV) | payer SELFPAY | PROVIDERS: Visit Provider Radiology Diagnostic Radiology | DX: M19.072 Primary osteoarthritis, left ankle and foot (principal); R22.42 Localized swelling, mass and lump, left lower limb | CPT/HCPCS: 73610 ==

== ENCOUNTER 2025-05-07 11:31 | Outpatient (REF) | payer SELFPAY ==
[2025-05-07 13:33] LABS: MANUAL DIFF FLAG NO
[2025-05-07 13:36] LABS: Basophils Absolute Auto 0.1 X10*3/uL (0.0-0.2); Basophils Percent Auto 0.4 % (0-2); Eosinophils Absolute Auto 0.1 X10*3/uL (0.0-0.4); Eosinophils Percent Auto 0.6 % (0-4); Hematocrit 40.7 % (37.0-47.0); Hemoglobin 13.3 g/dl (12.0-16.0); Imm Gran Abs Auto 0.06 X10*3/uL (0.00-0.03); Imm Gran Pct Auto 0.4 % (0.0-0.4); Lymphocytes Percent Auto 14.3 % (20-40); Mean Corpuscular HGB Conc 32.7 g/dl (31.0-35.0); Mean Corpuscular Volume 82.6 fL (80.0-98.0); Mean Platelet Volume 11.4 fL (9.4-12.3); Monocytes Absolute Auto 0.8 X10*3/uL (0.1-1.2); Monocytes Percent Auto 5.9 % (2-11); Neutrophils Absolute Auto 10.8 x10*3/uL (2.0-8.3); Neutrophils Percent Auto 78.4 % (45-73); Platelet Count 365 X10*3/uL (160-400); Red Blood Count 4.93 X10*6/uL (4.20-5.50); Red Cell Distribution Width 14.1 % (11.0-16.0); White Blood Count 13.8 X10*3/uL (4.8-10.8)
[2025-05-07 14:01] LABS: Anion Gap 14 (12-20); Blood Urea Nitrogen 15 mg/dL (9-16); Calcium 9.8 mg/dL (8.4-10.2); Carbon Dioxide 30 mmol/L (22-29); Chloride 100 mmol/L (96-108); Estimated Glomerular Filt Rate > 60; Glucose Random 152 mg/dL (60-115); Potassium 3.9 mmol/L (3.3-5.1); Sodium 140 mmol/L (135-145); Uric Acid 5.5 mg/dL (2.4-5.7)
== END 2025-05-07 11:32 | disposition home or self-care (01) ==
LOC: HO.HHCL 11:31
PROVIDERS: Visit Provider Family Medicine
DX: M25.572 Pain in left ankle and joints of left foot (principal)
CPT/HCPCS: 36415; 80048; 84550; 85025

== ENCOUNTER 2025-08-21 16:02 | Outpatient (AMB) | payer MEDICAID, SELFPAY ==
--- NOTE | 2025-08-21 16:04 | HO.NEPHOV ---
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 She was started on BP medication at that time . She continued that up to 2019 ( [place] at that time). Her BP was high at that time with headaches and was started on bisoprolol and ARB. She said that she was told she had CAD(in [facility]) and apparently she had further testing here with no definite evidence to say she had CAD. She has no vascular symptoms, CP, SOB,PND, orthopnea or edema. She has no H/O CHF, CVA, PAD, carotid stenosis, renal disease, thyroid dysfunction or proteinuria. She smokes daily and uses excessive sodium in the diet. Her parents and one daughter has H/O high BP. She has gained some weight since 2019; She takes ibuprofen prn. She denies headaches, weakness or visual disturbance. [facility] Medical History (Updated 01/23/25 @ 20:49 by Carlo Pepper MD) Hypertension Surgical History H/O foot surgery H/O elbow surgery Family History Father Heart disease Hypertension Father Heart disease Hypertension Social History Alcohol intake: never Patient Tobacco Use Status: Current everyday Tobacco user Review of Systems Const All systems reviewed & are unremarkable except as noted in HPI and below Physical Exam Vital Signs: Last Vital Signs Pulse 77 08/21/25 16:05 BP 120/70 08/21/25 16:05 Pulse Ox 95 08/21/25 16:05 Oxygen Delivery Method Room Air 08/21/25 16:05 BMI result Body Mass Index 35.8 Const General: comfortable and no acute distress Orientation/consciousness: patient oriented x3 HEENT Head: Yes normocephalic Mouth: Normal oral and palatal mucosa present Eyes EOM: EOMs intact bilaterally Neck Neck: Yes supple Resp Auscultation: clear to auscultation bilaterally Cardio Jugular venous distension: no JVD Rate: regular rate GI Palpation (GI): Soft to palpation Auscultation: normal bowel sounds General: Yes no CVA tenderness Back/Spine/Pelvis Back: no CVA tenderness Skin General skin exam: no rashes or lesions noted Neuro General: patient oriented x3 and moves all extremities Extrem General: Yes no pedal edema Results Reviewed Nephrology Results: Hgb, (12.0-16.0) 13.3 g/dl 05/07/25 WBC, (4.8-10.8) 13.8 X10*3/uL H 05/07/25 Plt Count, (160-400) 365 X10*3/uL 05/07/25 Sodium, (135-145) 140 mmol/L 05/07/25 Potassium, (3.3-5.1) 3.9 mmol/L 05/07/25 Chloride, (96-108) 100 mmol/L 05/07/25 Carbon Dioxide, (22-29) 30 mmol/L H 05/07/25 BUN, (9-16) 15 mg/dL 05/07/25 Creatinine, (0.5-1.4) 0.70 mg/dL 05/07/25 Calcium, (8.4-10.2) 9.8 mg/dL Δ 05/07/25 Urine Creatinine 139.74 mg/dL 01/26/24 Assessment & Plan Assessment & Plan (1) Hypertension: Code(s): I10 - Essential (primary) hypertension Category: Medical Qualifiers: Hypertension type: primary hypertension Qualified Code(s): I10 - Essential (primary) hypertension Plan She has no H/O hypokalemia, hypercalcemia, uncontrolled thyroid disorders or renal dysfunction. Her serum creatinine is normal. She can continue Valsartan/HCTZ 80/12.5 mg bid along with bisoprolol 5 mg daily . I asked her to lose weight and cut back Na in diet. F/U labs ordered. She should quit smoking as well. All her & her daughters questions were answered. Orders: Orders Protein Creatinine Ratio, Ur 6 Months I10 - Essential (primary) hypertension Electrolytes 6 Months I10 - Essential (primary) hypertension Blood Urea Nitrogen 6 Months I10 - Essential (primary) hypertension Creatinine 6 Months I10 - Essential (primary) hypertension Medications: Refilled bisoprolol fumarate 5 mg PO DAILY 90 tabs 3RF 90 days valsartan-hydrochlorothiazide 80-12.5 mg 1 tab PO BID 180 tabs 4RF 90 days Coding Level of Care Code Est Pt Level 4 (49192) Diagnoses Primary hypertension I10 Hypertension type: primary hypertension
[2025-08-21 16:05] VITALS: BP 120/70; PULSE 77; O2SAT 95; BMI 35.8
--- OUTSIDE RECORDS SUMMARY | 2025-08-21 16:11 | XMS_ITS | Encounter Summary ---
Author Organization [employer] Address [address] [place] [address] [address] [place] [address] Care Team Providers Care Stockroom Worker Name Role Phone Ashley Alcaraz Primary Care Provider [phone] Encounter Details Date Type Department Care Team ([facility] st Contact Info) Description 12/25/2022 Orders Only [facility] MEDIC[facility] [address], [place] [phone] Yoselin Gallardo LPN Social History Tobacco Use Types Packs/Day Years Used Date Smoking Tobacco: Never Assessed Comments Unknown Sex and Gender Information Value Date Recorded Sex Assigned at Female 09/25/2022 10:40 AM EDT Legal Sex Female 10:40 AM EDT Gender Identity Female 09/25/2022 10:40 AM EDT Sexual Orientation Straight 09/25/2022 10 :40 AM EDT documented as of this encounter Plan of Treatment Not on file documented as of this encounter Visit Diagnoses Not on filedocumented in this encounter Care Teams Stockroom Worker Relationship Specialty Start Date End Date Ashley Alcaraz ANP [address], [place] [phone] PCP - General Family Medicine 02/28/22 documented as of this encounter
--- OUTSIDE RECORDS SUMMARY | 2025-08-21 16:11 | XMS_ITS | Clinical Summary ---
Author Organization [facility] Address [address] [place] [address] Care Team Providers Care Power System Engineer Name Role Phone Ashley Alcaraz Primary Care Provider [phone] Allergies No known active allergies Medications valsartan-hydroc [...] Colonoscopy 1957 FOBT / Fit Test 1957 Sigmoidoscopy 1957 Pneumococcal Vaccine: 50+ Years (1 of 2 - PCV) 1976 DTaP,Tdap,and Td Vaccines (1 - Tdap) 1979 CT Lung Cancer Screening (Baseline) 2007 Osteoporosis Screening 2007 Zoster Vaccines (1 of 2) 2007 Alcohol/Substance Use Screening 11/26/2024 Health Care Proxy Review 11/26/2024 COVID-19 Vaccine (3 - 2024-2 6 season) 2025 03/27/2021, 03/05/2021 Influenza Vaccine (#1) 2025 RSV Vaccine (60+ years old a nd patients) (1 - 1-dose 75+ series) 2032 Hepatitis B Vaccines Aged Out No long er eligible based on patient's age to complete this topic Insurance [email or web address] [facility]/FREE CARE Care Teams Power System Engineer Relationship Specialty Start Date End Date Ashley Alcaraz [address] [place] [id number] PCP - General 03/09/22
--- OUTSIDE RECORDS SUMMARY | 2025-08-21 16:11 | XMS_ITS | Clinical Summary ---
Author Organization [employer] Address [address] [facility] 7t [place] [address] Care Team Providers Care Bb Shot Packer Name Role Phone Eric Best JAKOB Primary Care Provider [phone] Allergies No known active allergies Medications * [...] EVERY MORNING 90 tablet 1 4 Active bisoprolol (Zebeta) 10 MG tablet TAKE ONE TABLET DAILY 90 tablet 3 4 Active valsartan-hydroCHL OROthiazide (Diovan-HCT) 80-12.5 MG tablet TAKE ONE TABLET DAILY 90 tablet 3 4 Active clotrimazole (Lotrimin) 1 % creamIndications:T inea cruris APPLY TOPICALLY TWICE A DAY 45 g 4 Active meloxicam (Mobic) 7.5 MG tabletIndications: Left ankle swelling Take 1 tab twice daily OR 2 tabs once daily for 7 days, then as needed for pain/swelling 60 tablet 5 Active atorvastatin (Lipitor) 20 MG tabletIndications: Hyperlipidemia, unspecified hyperlipidemia type TAKE ONE TABLET BY MOUTH ONCE DAILY 90 tablet 2 5 Active Diclofenac Sodium 1 % gelIndications:Chetna n APPLY TWO GRAMS TO THE AFFECTED AREA(s) FOUR TIMES DAILY NEEDED FOR PAIN 100 g 1 5 Active Active Problems Problem Noted Date Diagnosed Date Dyslipidemia 01/29/2024 Low back pain radiating to both legs 01/29/2024 Essential hypertension 01/29/2024 Continuous dependence on cigarette smoking 01/28 Overview (01/29/2024): smoking much less, maybe 1 daily or 1 every few days Atherosclerosis of aorta 05/10/2022 Encounters Date Type Department Care Team Description 08/17/2025 Telephone [facility] [address], [place] [phone] Erci Best ANP dec recall 07/15/2025 Refill [facility] [address], [place] [phone] Eric Best ANP Pain 05/26/2025 Refill [facility] P[facility]S [address] [place], [place] [phone] Eric Best ANP Hyperlipidemia, unspecified hyperlipidemia type from Last 3 Months Immunizations Immunization Administration Dates Next Due Tdap 12/31/2023 Social History Tobacco Use Types Packs/Day Years Used Date Smoking Tobacco: Every Day Cigarettes 0.3 20 Passive Smoke Exposure: Never Smokeless Tobacco: Never Tobacco Cessation:Ready to Q uit: Not Asked; Counseling Given: Not Answered Alcohol Use Standard Drinks/Week Comments Never 0 (1 standard drink = 0.6 oz pur e alcohol) Alcohol Answer Date Recorded Frequency of Alcohol Consumption Not on file 01/29/2024 Average Number of Drinks Not on file 024 Frequency of Binge Drinking Not on file 0 03/2024 Score 0 01/29/2024 Depression Answer Date Recorded Patient Health Questionnaire-9 Score 0 05/15/2025 Patient Health Questionnaire-9 Score 0 05/15/2025 Last PHQ-9: Questionnaire Data Not on file 0 05/15/2025 Housing Stability Answer Date Recorded What is your housing situation today? I do not have housing (Staying with others, in a hotel, in a intermediate, living outside on the street, on a beach, in a car, or in a park 05/15/[address] you li ve. Do you have problems with any of the following? None of the above 05/15/2025 Food Insecurity Answer Date Recorded Within the past 12 months, y ou worried that your food would run out before you got money to buy more: Never True 05/15/2025 Within the past 12 months,th e food you bought just didn't last and you didn't have enough money to get more: Never True Transportation Answer Date Recorded In the past 12 months, has l ack of transportation kept you from medical appts, meetings, work or from getting things needed for daily living? No 05/15/2025 Utilities Answer Date Recorded In the past 12 months, has t he electric, gas, oil or water company threatened to shut off services in your home? No 05/15/2025 Depression Answer Date Recorded Patient Health Questionnaire-2 Score 0 05/15/2025 Internet Access Answer Date Recorded Internet Access Q1 Yes 05/15/2025 Internet Access Q2 Not on file 05/15/2025 Comments No Sex and Gender Information Value Date Recorded Sex Assigned at Female 09/25/2022 10:40 AM EDT Legal Sex Female 10:40 AM EDT Gender Identity Female 09/25/2022 10:40 AM EDT Sexual Orientation Straight 09/25/2022 10 :40 AM EDT Last Filed Vital Signs Vital Sign Reading Time Taken Comments Blood Pressure 130/72 05/15/2025 2:45 PM EDT Pulse 80 05/15/2025 2:45 PM EDT Temperature 37.1 C (98.7 F) 05/15/2025 2:45 PM EDT Respiratory Rate 20 05/15/2025 2:45 PM EDT Oxygen Saturation 97% 05/07/2025 10:28 AM EDT Inhaled Oxygen Concentration - - Weight 87.5 kg (193 lb) 05/15/2025 2:45 PM EDT Height 157.5 cm (5' 2 ) 05/15/2025 2:45 PM EDT Body Mass Index 35.3 05/15/2025 2:45 PM EDT Plan of Treatment Health Maintenance Due Date Last Done Comments CT Colonography 1955 Colonoscopy 1955 Dental X-Ray: Bitewings 1955 Dental X-Ray: Full Mouth 1955 FIT 1957 Sigmoidoscopy 1955 Zoster Vaccines (1 of 2) 2007 Dental Oral Exam 10/15/2023 04/13/2023 Dental Prophylaxis 10/15/2023 04/13/2023 Mammogram 06/08/2024 06/08/2023, 06/08/2023 HPV/Cotest 05/20/2025 05/20/2024, 04/24/2023, 04/24/2023 Pap Smear 05/20/2025 05/20/2024, 04/24/2023 FOBT 06/19/2025 06/19/2024 COVID-19 Vaccine (3 - 2024-2 6 season) 2025 03/27/2021, 03/05/2021 Influenza Vaccine (#1) 2025 Alcohol/Substance Use Screening 05/15/2026 05/15/2025 Depression Screening 05/15/2026 05/15/2025, 05/15/2025 Pneumococcal Vaccine: 50+ Years (1 of 2 - PCV) 05/15/2026 Postponed from 09/27 (Patient Refused) SDOH Screening 05/15/2026 05/15/2025 Tobacco Screening 05/15/2026 05/15/2025 Colorectal Cancer Screening 06/19/2027 FIT DNA/Cologuard 06/19/2027 [...] patient's age to complete this topic Hepatitis A Vaccines Aged Out No long er eligible based on patient's age to complete this topic Hepatitis B Vaccines Aged Out No long er eligible based on patient's age to complete this topic IPV Vaccines Aged Out No longer eligi ble based on patient's age to complete this topic Meningococcal B Vaccine Aged Out No l onger eligible based on patient's age to complete [...] Procedure Name Priority Date/Time Associated Diagnosis Comments LAB COLOGUARD COLON CANCER SCREEN Routine 06/19/2024 5:20 PM EDT Screening for malignant neoplasm of colon THINPREP IMAGING PAP AND HPV MRNA E6/E7 WITH REFLEX TO HPV 16,18/45 Routine 05/20/2024 3:28 PM EDT LIPID PANEL, STANDARD Routine 01/26/2024 10:38 AM [...] PM EDT) Cologuard Result Negative Negative 06/25/20 24 1:38 PM EDT [facility] (CLIA #:[id number]) Comment: NEGATIVE TEST RESULT. A negative Cologuard result indicates a low likelihood that a colorectal cancer (CRC) or advanced adenoma (adenomatous polyps with more advanced pre-malignant features) is present. The chance that a person with a negative Cologuard test has a colorectal cancer is less than 1 in 1500 (negative predictive value >99.9%) or has an advanced adenoma is less than 5.3% (negative predictive value 94.7%). These data are based on a prospective cross-sectional study of 10,000 individuals at average risk for colorectal cancer who were screened with both Cologuard and colonoscopy. (Zackary Peralta al, N Engl J Med 2014;370(14):9673-4348) The normal value (reference range) for this assay is negative. COLOGUARD RE-SCREENING RECOMMENDATION: Periodic colorectal cancer screening is an important part of preventive healthcare for asymptomatic individuals at average risk for colorectal cancer. Following a negative Cologuard result, the [place] Cancer Society and U.S. Multi-Society Task Force screening guidelines recommend a Cologuard re-screening interval of 3 years. References: [place] [employer] Guideline for Colorectal Cancer Screening: https://www.cancer.org/cancer/nugzt-ducwjt-wczpos/rfhqvrgqk-sfybpgfkc-pujyjjf/ac s-rec ommendations.html.; Rodrick DK, Ondina BARON, Yasmine SantillanK, Colorectal Cancer Screening: Recommendations for Physicians and Patients from the U.S. Multi-Society Task Force on Colorectal Cancer Screening , Am J Gastroenterology 2017; 112:1486-0585. TEST DESCRIPTION: Composite algorithmic analysis of stool DNA-biomarkers with hemoglobin immunoassay. Quantitative values of individual biomarkers are not [...] (Zackary Peralta al, N Engl J Med 2014;370(14):1965-7664.) Cologuard may produce a false negative or false positive result (no colorectal cancer or precancerous polyp present at colonoscopy follow up). A negative Cologuard test result does not guarantee the absence of CRC or advanced adenoma (pre-cancer). The current Cologuard screening interval is every 3 years. ([place] [employer] Society and U.S. Multi-Society Task Force). Cologuard performance data in a 10,000 patient pivotal study using colonoscopy as the reference method can be accessed at the following location: www.[employer]/results. Additional description of the Cologuard test process, warnings and precautions can be found at [email or web address].[email or web address]. Stool specimen (specimen) 06/19/2024 5:20 PM EDT 06/21/2024 7:36 AM EDT [facility] LAB MOLECULAR DIAGNOSTICS ORDERA BLES Final Result [facility] (CLIA #:[id number]) [address] [place] [address], * ThinPrep Imaging Pap and HPV mRNA E6/E7 with Reflex to HPV 16,18/45 (05/20/2024 3:28 PM EDT) HPV 16 RNA HIP [facility] HPV 18/45 RNA [facility] HPV nRNA E6/E7 Not Detected Not Detected [facility] Comment:Methodology: Transcr iption-Mediated AmplificationThis assay detects E6/E7 viral messenger RNA (mRNA) from 14high-risk HPV types (16,18,31,33,35,39,45,51,52,56,58,59,66,68).Cervical sources are required for HPV testing.If a vaginal source from a patient who has had atotal hysterectomy with removal of cervix wassubmitted, please contact the testing laboratoryfor alternative testing options.For additional information, please refer tohttp://education.[employer]/faq/FBS036q7(This link if provided for information/educational purposes only.)THIS TEST WAS PERFORMED AT:[employer] [address] [id number] BRIZUELA MD SOURCE: SEE NOTE [facility] Comment:Cervix Report Status: [facility] Clinical Information: SEE NOTE [facility] Comment:ROUTINE LMP: SEE NOTE [facility] Comment:NONE GIVEN Prev. PAP: SEE NOTE [facility] Comment:2019 Prev. BX: SEE NOTE [facility] Comment:NONE GIVEN Statement Of Adequacy: SEE NOTE [facility] Comment:Satisfactory for jd luation.Endocervical/transformation zone component absent. General Categorization: [facility] Interpretation/Result: SEE NOTE [facility] Comment:Cytology Results: Ne gative for intraepitheliallesion or malignancy. Cytology Comment SEE NOTE [facility] Comment:This Pap test has be en evaluated with computerassisted technology. Service Support Representative: SEE NOTE [facility] Comment:MRC, CT(ASCP) CT scr eening location: [address] [address] Review Service Support Representative: [facility] Pathologist [facility] PAP Infection [facility] See Note SEE NOTE [facility] Comment:EXPLANATORY NOTE:The Pap is a screening test for cervical cancer. It isnot a diagnostic test and is subject to false negativeand false positive results. It is most reliable when asatisfactory sample, regularly obtained, is submittedwith relevant clinical findings and history, and whenthe Pap result is evaluated along with historic andcurrent clinical information. 05/20/2024 3:28 PM EDT 05/21/2024 11:49 AM EDT Narrative [facility] - 05/27/2024 3:22 PM EDT SEE SCANNED RESULTS IN [id number] us Qian Villanueva CNM LAB PATHOLOGY ORDERABLES Final Result [facility] [address] [place] [address] [phone] * (ABNORMAL) Lipid Panel, Standard (01/26/2024 10:38 AM EST) Triglycerides 134 <150 mg/dL [facility] Comment:Desirable Triglyceri de: less than 150 mg/dLBorderline High Triglyceride 150-199 mg/dLHigh Triglyceride: 200-499 mg/dLVery High Triglyceride: greater than or equal to 5OO mg/dL Cholesterol 128 <200 mg/dL [facility] Comment:Desirable Cholestero l: less than 200 mg/dLBorderline High Cholesterol: 200-239 mg/dLHigh Cholesterol: greater than 239 mg/dL LDL Cholesterol Calculated 66 <100 mg/dL [facility] Comment:Desirable LDL: less than 100 mg/dLNear Optimal/Above Optimal LDL: 110- 129 mg/dLBorderline High LDL: 130-159 mg/dLHigh LDL: 160-189 mg/dLVery High LDL: greater than or equal to 190 mg/dL HDL Cholesterol 36(L) >40 mg/dL [facility] Comment:Desirable HDL: great er than 40 mg/dL Note: This HDL assay may give artificially low results in patients with liver disease. Blood Venous blood specimen / Unknown 01/26/2024 10:38 AM EST 01/26/2024 10:39 AM EST Eric Best [facility] LAB BLOOD ORDERABLES Final Resul t [facility] [address] [place] [address] [phone] * BI Mammogram Screening Tomosynthesis Bilateral (06/08/2023 8:11 AM EDT) Anatomical Region Laterality Modality Breast Bilateral Mammography 06/08/2023 8:11 AM EDT Narrative 07/03/2023 2:17 PM EDT [facility] [address] [place] [address] Mammography Report Signed Patient: Blossom Whatley MR#: [id number] : 1955 Acct:[id number] Age/Sex: 67 / F ADM Date: 06/08/23 Loc: MAMMO Attending Dr: Eric Best NP Ordering Physician: ERIC BEST NP Results: Date of Service: 06/08/23 Follow Up: Procedure(s): MM tomosynthesis screening BI Accession Number(s): [id number] cc: ERIC BEST NP EXAMINATION: MM SCREENING [...] in OV> 07/03/23 1415 DD/ 0811 TD/TT: Gastroenterology Nurse Practitioner: Procedure Note Donotuseinterpreter, Image - [facility]/03/2023 [facility] [address] [place], [place] [address] Mammography Report Signed Patient: Blossom Whatley#: [id number] : 1955cct:[id number] Age/Sex: 67 / FADM Date: 06/08/23 Loc: [place] Attending Dr: Eric Best NP Ordering Physician: ERIC BEST NPResults: Date of Service: 06/08/23Follow Up: Procedure(s): MM tomosynthesis screening BI Accession Number(s): [id number] cc: ERIC BEST NP EXAMINATION: MM SCREENING [...] in OV> 07/03/23 1415 DD/ 0811 TD/TT: Gastroenterology Nurse Practitioner: us Eric Best ANP IMG BI PROCEDURES Final Result * HEPATITIS C AB W/REFL TO HCV RNA, QN, PCR (02/28/2022 10:58 AM EDT) HEPATITIS C ANTIBODY NON-REACT JENNY NON-REACT JENNY [facility] INDEX 0.01 <1.00 [facility] Comment: HCV antibody was non-reactive. There is no laboratory evidence of HCV infection. In most cases, no further action is required. However, if recent HCV exposure is suspected, a test for HCV RNA (test code 81567) is suggested. For additional information please refer to http://education.[employer]/faq/OPV97s1 (This link is being provided for informational/ educational purposes only.) 02/28/2022 10:5 8 AM EDT us Eric Best ANP HISTORICAL/NON ORDERABLE LABS Fi nal Result [facility] [address] from Last 3 Months or Most Recently Relevant to Health Maintenance Insurance HSN FULL DENTAL - HSN FULL (MEDICAID) Care Teams Bb Shot Packer Relationship Specialty Start Date End Date Eric Best ANP [address] [place] [id number] PCP - General Family Medicine 02/28/22
--- OUTSIDE RECORDS SUMMARY | 2025-08-21 16:11 | XMS_ITS | Encounter Summary ---
Author Organization [employer] Address [address] [facility] 7t [place] [address] Care Team Providers Care Substation Engineer Name Role Phone Ashley Alcaraz Primary Care Provider [phone] Reason for Visit * Reason Onset Date Comments dec recall 08/17/2025 Encounter Details Date Type Department Care Team ([facility] st Contact Info) Description 08/17/2025 Telephone [facility]INE [address] [place], [place] [phone] Ashley Alcaraz ANP [address] [place], [place] [phone] dec recall Social History Tobacco Use Types Packs/Day Years [...] with others, in a hotel, in a senior living, living outside on the street, on a [...] encounter Miscellaneous Notes * Telephone Encounter - Marin Kim MA - 08/17/2025 1:40 PM EDT .Telephone call to patient to schedule a recall appointment. No answer, unable to leave voicemail (not set up).. Recall letter sent. Visit type: Follow up Appointment notes: HTN/HLD f/u Month due: October With: Lissa Please schedule appointment above if patient returns call documented in this encounter Plan of Treatment Not on file documented as of this encounter Visit Diagnoses Not on filedocumented in this encounter Additional Health Concerns Assessment Noted Time PHQ-9 Depression Total Score: 0 05/15/20 25 2:47 PM EDT documented as of this encounter Care Teams Substation Engineer Relationship Specialty Start Date End Date Ashley Alcaraz ANP [address] [place] [id number] PCP - General Family Medicine 02/28/22 documented as of this encounter
--- OUTSIDE RECORDS SUMMARY | 2025-08-21 16:11 | XMS_ITS | Encounter Summary ---
Author Organization [employer] Address [address] [facility] 7t [place] [address] Care Team Providers Care Uat Tester Name Role Phone Ashley Alcaraz Primary Care Provider [phone] Encounter Details Date Type Department Care Team ([facility] st Contact Info) Description 08/23/2023 Orders Only [facility] [address] [place] [address] Sloane Olson LPN Social History Tobacco Use [...] on filedocumented in this encounter Care Teams Uat Tester Relationship Specialty Start Date End Date Ashley Alcaraz ANP [address] [place] [id number] PCP - General Family Medicine 02/28/22 documented as of this encounter
--- OUTSIDE RECORDS SUMMARY | 2025-08-21 16:11 | XMS_ITS | Encounter Summary ---
Author Organization [employer] Address [address] [facility] 7t [place] [address] Care Team Providers Care Canvas Baster Jumpbasting Name Role Phone Ashley Alcaraz Primary Care Provider [phone] Encounter Details Date Type Department Care Team ([facility] st Contact Info) Description 01/02/2023 Orders Only [facility] MED & PEDS [address] [place] [address] Sloane Olson LPN Social History Tobacco Use [...] on filedocumented in this encounter Care Teams Canvas Baster Jumpbasting Relationship Specialty Start Date End Date Ashley Alcaraz ANP [address] [place] [phone] PCP - General Family Medicine 02/28/22 documented as of this encounter
--- OUTSIDE RECORDS SUMMARY | 2025-08-21 16:11 | XMS_ITS | Encounter Summary ---
Author Organization [employer] Address [address] [place] [id number] Care Team Providers Care Aoc Director Intelligence Officer Name Role Phone Ashley Alcaraz Primary Care Provider [phone] Reason for Visit * Reason Onset Date Comments Med Refill 10/26/2022 Encounter Details Date Type Department Care Team ([facility] st Contact Info) Description 10/26/2022 Telephone [facility] MEDICINE [address] [place], [place] [phone] Ashley Alcaraz ANP [address] [place] [address] Med Refill Social History Tobacco Use Types [...] on filedocumented in this encounter Care Teams Aoc Director Intelligence Officer Relationship Specialty Start Date End Date Ashley Alcaraz ANP [address] [place], [place] [phone] PCP - General Family Medicine 02/28/22 documented as of this encounter
== END 2025-08-21 16:17 | disposition home or self-care (01) ==
LOC: HO.HKA 16:03
PROVIDERS: PCP Nurse Practitioner Primary Care; Visit Provider Internal Medicine Nephrology
DX: I10 Essential (primary) hypertension (principal)
CPT/HCPCS: 99214

== ENCOUNTER → 2025-08-21 16:02 | Outpatient (BNVA) | payer OTHER, SELFPAY | PROVIDERS: PCP Nurse Practitioner Primary Care; Visit Provider Internal Medicine Nephrology | DX: I10 Essential (primary) hypertension (principal) | CPT/HCPCS: 99212 ==

== ENCOUNTER 2025-11-07 10:14 | Outpatient (REF) | payer MEDICAID, SELFPAY ==
--- OUTSIDE RECORDS SUMMARY | 2025-11-07 10:17 | XMS_ITS | Encounter Summary ---
Author Organization [employer] Address [address] [place] [address] [address]t [place] [address] Care Team Providers Care Clinical Research Manager Name Role Phone Ashley Alcaraz Primary Care Provider [phone] Encounter Details Date Type Department Care Team ([facility] st Contact Info) Description 12/25/2022 Orders Only [facility] MEDICINE [address] [place], [place] [phone] Yoselin Gallardo LPN Social History Tobacco Use [...] on filedocumented in this encounter Care Teams Clinical Research Manager Relationship Specialty Start Date End Date Ashley Alcaraz ANP [address] [place], [place] [phone] PCP - General Family Medicine 02/28/22 documented as of this encounter
--- OUTSIDE RECORDS SUMMARY | 2025-11-07 10:17 | XMS_ITS | Encounter Summary ---
Author Organization [employer] Address [address] [facility] 7t [place] [address] Care Team Providers Care Manager Trading Name Role Phone Ashley Alcaraz Primary Care Provider [phone] Encounter Details Date Type Department Care Team ([facility] st Contact Info) Description 01/02/2023 Orders Only [facility] MED & PEDS [address] [place] [address] Sloane Olson LPN Social History Tobacco Use [...] on filedocumented in this encounter Care Teams Manager Trading Relationship Specialty Start Date End Date Ashley Alcaraz ANP [address] [place] [phone] PCP - General Family Medicine 02/28/22 documented as of this encounter
--- OUTSIDE RECORDS SUMMARY | 2025-11-07 10:17 | XMS_ITS | Clinical Summary ---
Author Organization [employer] Address [address] [facility] [address] [place] [address] Care Team Providers Care Mine Supervisor Name Role Phone Eric Best JAKOB Primary Care Provider [phone] Allergies No known active allergies Medications * [...] Encounters Date Type Department Care Team Description 09/21/2025 Refill [facility] [address] [place] [address] Eric Best ANP Pain 08/17/2025 Telephone [facility] [address] [place], [place] [phone] Eric Best ANP dec recall from Last 3 Months Immunizations Immunization Administration [...] with others, in a hotel, in a assisted, living outside on the street, on a [...] Negative Negative 06/25/20 24 1:38 PM EDT [facility] (CLIA #:[id number]) Comment: NEGATIVE TEST RESULT. A negative Cologuard [...] screened with both Cologuard and colonoscopy. (Zackary Jacobsen, N Engl J Med 2014;370(14):0734-1465) The normal value (reference range) for this assay is negative. COLOGUARD RE-SCREENING RECOMMENDATION: Periodic colorectal cancer screening is an important part of preventive healthcare for asymptomatic individuals at average risk for colorectal cancer. Following a negative Cologuard result, the [place] [employer] Society and U.S. Multi-Society Task Force screening guidelines recommend a Cologuard re-screening interval of 3 years. References: [place] [employer] Guideline for Colorectal Cancer Screening: https://www.cancer.org/cancer/heafp-vjvrdt-hgjjub/biiizsnrs-ctinshhav-wibtulz/ac s-rec ommendations.html.; Rodrick DK, Ondina BARON, Yasmine SantillanK, Colorectal Cancer Screening: Recommendations for Physicians and Patients from the U.S. Multi-Society Task Force on Colorectal Cancer Screening , Am J Gastroenterology 2017; 112:1418-2169. TEST DESCRIPTION: Composite algorithmic analysis of stool [...] screened with both Cologuard and colonoscopy. (Zackary Jacobsen, N Engl J Med 2014;370(14):7953-6661.) Cologuard may produce a false negative or false positive result (no colorectal cancer or precancerous polyp present at colonoscopy follow up). A negative Cologuard test result does not guarantee the absence of CRC or advanced adenoma (pre-cancer). The current Cologuard screening interval is every 3 years. ([place] [employer] and U.S. Multi-Society Task Force). Cologuard performance data in a 10,000 patient pivotal study using colonoscopy as the reference method can be accessed at the following location: www.[employer].e-contratos/results. Additional description of the Cologuard test process, warnings and precautions can be found at www.[employer].com. Stool specimen (specimen) 06/19/2024 5:20 PM EDT 06/21/2024 7:36 AM EDT [facility] MOLECULAR DIAGNOSTICS ORDERA BLES Final Result [facility] (CLIA #:[id number]) [address] [place] [address], * ThinPrep Imaging Pap and HPV mRNA E6/E7 with Reflex to HPV 16,18/45 (05/20/2024 3:28 PM EDT) HPV 16 RNA NHP [facility] HPV 18/45 RNA [facility] HPV nRNA E6/E7 Not Detected Not Detected [facility] Comment:Methodology: Transcr iption-Mediated AmplificationThis assay detects E6/E7 viral messenger RNA (mRNA) from 14high-risk HPV types (16,18,31,33,35,39,45,51,52,56,58,59,66,68).Cervical sources are required for HPV testing.If a vaginal source from a patient who has had atotal hysterectomy with removal of cervix wassubmitted, please contact the testing laboratoryfor alternative testing options.For additional information, please refer tohttp://education.[employer].e-contratos/faq/UMT857e3(This link if provided for information/educational purposes only.)THIS TEST WAS PERFORMED AT:[employer] [place] [phone] BRIZUELA MD SOURCE: SEE NOTE [facility] Comment:Cervix Report Status: [facility] Clinical Information: SEE NOTE [facility] Comment:ROUTINE LMP: SEE NOTE [facility] Comment:NONE GIVEN Prev. PAP: SEE NOTE [facility] Comment:2019 Prev. BX: SEE NOTE [facility] Comment:NONE GIVEN Statement Of Adequacy: SEE NOTE [facility] Comment:Satisfactory for jd luation.Endocervical/transformation zone component absent. General Categorization: [facility] Interpretation/Result: SEE NOTE [facility] Comment:Cytology Results: Ne gative for intraepitheliallesion or malignancy. Cytology Comment SEE NOTE [facility] Comment:This Pap test has be en evaluated with computerassisted technology. Handwriting Expert: SEE NOTE [facility] Comment:MRC, CT(ASCP) CT scr eening location: [place] [address] Review Handwriting Expert: [facility] Pathologist [facility] PAP Infection [facility] See Note SEE NOTE [facility] Comment:EXPLANATORY NOTE:The Pap is a screening test for cervical cancer. It isnot a diagnostic test and is subject to false negativeand false positive results. It is most reliable when asatisfactory sample, regularly obtained, is submittedwith relevant clinical findings and history, and whenthe Pap result is evaluated along with historic andcurrent clinical information. 05/20/2024 3:28 PM EDT 05/21/2024 11:49 AM EDT Narrative [facility] - 05/27/2024 3:22 PM EDT SEE SCANNED RESULTS IN [id number] us Qian Villanueva CNM LAB PATHOLOGY ORDERABLES Final Result [facility] [address] [place] [address] [phone] * (ABNORMAL) Lipid Panel, Standard (01/26/2024 10:38 AM EST) Triglycerides 134 <150 mg/dL [facility] Comment:Desirable Triglyceri de: less than 150 mg/dLBorderline High Triglyceride 150-199 mg/dLHigh Triglyceride: 200-499 mg/dLVery High Triglyceride: greater than or equal to 5OO mg/dL Cholesterol 128 <200 mg/dL [facility] Comment:Desirable Cholestero l: less than 200 mg/dLBorderline High Cholesterol: 200-239 mg/dLHigh Cholesterol: greater than 239 mg/dL LDL Cholesterol Calculated 66 <100 mg/dL [facility] Comment:Desirable LDL: less than 100 mg/dLNear Optimal/Above Optimal LDL: 110- 129 mg/dLBorderline High LDL: 130-159 mg/dLHigh LDL: 160-189 mg/dLVery High LDL: greater than or equal to 190 mg/dL HDL Cholesterol 36(L) >40 mg/dL [facility] Comment:Desirable HDL: great er than 40 mg/dL Note: This HDL assay may give artificially low results in patients with liver disease. Blood Venous blood specimen / Unknown 01/26/2024 10:38 AM EST 01/26/2024 10:39 AM EST Eric Best ANP LAB BLOOD ORDERABLES Final Resul t [facility] [address] [place] [phone] * BI Mammogram Screening Tomosynthesis Bilateral (06/08/2023 8:11 AM EDT) Anatomical Region Laterality Modality Breast Bilateral Mammography 06/08/2023 8:11 AM EDT Narrative 07/03/2023 2:17 PM EDT [facility] [address] [place] [address] Mammography Report Signed Patient: Blossom Whatley MR#: [id number] : 1955 Acct:[id number] Age/Sex: 67 / F ADM Date: 06/08/23 Loc: HO.MAMMO Attending Dr: Eric Best NP Ordering Physician: ERIC BEST NP Results: Date of Service: 06/08/23 Follow Up: Procedure(s): MM tomosynthesis screening BI Accession Number(s): [id number] cc: REIC EBST NP EXAMINATION: MM SCREENING DIGITAL BREAST TOMOSYNTHESIS, [...] in OV> 07/03/23 1415 DD/ 0811 TD/TT: Latent Print Examiner: Procedure Note Donotuseinterpreter, Image - 07/03/2023 [facility] [address] [place], [place] [address] Mammography Report Signed Patient: Blossom Whatley#: [id number] : 7Acct:[id number] Age/Sex: 67 / FADM Date: 06/08/23 Loc: [facility] Attending Dr: Eric Best NP Ordering Physician: ERIC BEST NPResults: Date of Service: 06/08/23Follow Up: Procedure(s): MM tomosynthesis screening BI Accession Number(s): [id number] cc: ERIC BEST NP EXAMINATION: MM SCREENING [...] in OV> 07/03/23 1415 DD/ 0811 TD/TT: Latent Print Examiner: us Eric ROBERT IMG BI PROCEDURES Final Result * HEPATITIS C AB W/REFL TO HCV RNA, QN, PCR (02/28/2022 10:58 AM EDT) HEPATITIS C ANTIBODY NON-REACT JENNY NON-REACT JENNY [facility] INDEX 0.01 <1.00 [facility] Comment: HCV antibody was non-reactive. There is no laboratory evidence of HCV infection. In most cases, no further action is required. However, if recent HCV exposure is suspected, a test for HCV RNA (test code 21287) is suggested. For additional information please refer to http://education.[employer].e-contratos/faq/VQM77j3 (This link is being provided for informational/ educational purposes only.) 02/28/2022 10:5 8 AM EDT us Eric Best ANP HISTORICAL/NON ORDERABLE LABS Fi nal Result [facility] [address] from Last 3 Months or Most Recently Relevant to Health Maintenance Insurance [place], [place] HSN FULL [place], [place] D[place] - HSN FULL (MEDICAID) * Guarantor: Blossom Whatley Account Type Relation to Patient Date of Phone Billing Address Personal/Family Self [place], [place] Care Teams Mine Supervisor Relationship Specialty Start Date End Date Eric Best ANP [address] [place] [id number] PCP - General Family Medicine 02/28/22
--- OUTSIDE RECORDS SUMMARY | 2025-11-07 10:17 | XMS_ITS | Encounter Summary ---
Author Organization [employer] Address [address] [facility] [address] [place] [address] Care Team Providers Care Director Of Group Counseling Program Name Role Phone Ashley Alcaraz Primary Care Provider [phone] Encounter Details Date Type Department Care Team ([facility] st Contact Info) Description 08/23/2023 Orders Only [facility] [address] [place] [address] Sloane Olson LPN Social History Tobacco Use [...] on filedocumented in this encounter Care Teams Director Of Group Counseling Program Relationship Specialty Start Date End Date Ashley Alcaraz ANP [address] [place] [phone] PCP - General Family Medicine 02/28/22 documented as of this encounter
--- OUTSIDE RECORDS SUMMARY | 2025-11-07 10:17 | XMS_ITS | Encounter Summary ---
Author Organization [facility] [facility] Address [address] [place] [address] Care Team Providers Care Discovery Manager Name Role Phone Ashley Alcaraz Primary Care Provider [phone] Reason for Visit * Reason Onset Date Comments Med Refill 10/26/2022 Encounter Details Date Type Department Care Team ([facility] st Contact Info) Description 10/26/2022 Telephone [facility] [address] [place], [place] [phone] Ashley Alcaraz ANP [address] [place] [address] Med Refill Social History Tobacco Use Types [...] on filedocumented in this encounter Care Teams Discovery Manager Relationship Specialty Start Date End Date Ashley Alcaraz ANP [address] [place], [place] [phone] PCP - General Family Medicine 02/28/22 documented as of this encounter
--- OUTSIDE RECORDS SUMMARY | 2025-11-07 10:17 | XMS_ITS | Clinical Summary ---
Author Organization [facility] Address [address] [place] [address] Care Team Providers Care Pr Intern Name Role Phone Ashley Alcaraz Primary Care Provider [phone] Allergies No known active allergies Medications valsartan-hydroc [...] Screening 11/26/2024 Health Care Proxy Review 11/26/2024 Influenza Vaccine (#1) 2025 COVID-19 Vaccine (3 - 2024-2 6 season) 2025 03/27/2021, 03/05/2021 RSV Vaccine (60+ years old a nd patients) (1 - 1-dose 75+ series) 2032 Hepatitis B Vaccines Aged Out No long er eligible based on patient's age to complete this topic Insurance [facility] Care Teams Pr Intern Relationship Specialty Start Date End Date Ashley Alcaraz [address] [place] [phone] PCP - General 03/09/22
[2025-11-07 12:39] LABS: Cholesterol 130 mg/dL (<200); HDL Cholesterol 37 mg/dL (>40); Triglycerides 130 mg/dL (<150)
[2025-11-07 12:40] LABS: Microalbum/Creatinine Ratio Ur 7.9 ug/mg cr (<30)
== END 2025-11-07 10:15 | disposition home or self-care (01) ==
LOC: HO.HMGCLDS 10:14
PROVIDERS: PCP Nurse Practitioner Primary Care; Visit Provider Internal Medicine Nephrology
DX: I10 Essential (primary) hypertension (principal); E78.5 Hyperlipidemia, unspecified
CPT/HCPCS: 36415; 80061; 82043; 82570; 83036